=== PATIENT | female | born 1950 | race Two or more races ===

== ENCOUNTER → 2021-10-16 | Outpatient (CLI) | payer OTHER ==
[2021-10-16 08:46] LABS: Urine Bacteria NONE SEEN /hpf (None Seen); Urine Blood Negative /uL (Negative); Urine Mucus FEW (None Seen); Urine Specific Gravity 1.023 (1.001-1.035); Urine WBC 2 /hpf (0 - 5)
[2021-10-16 09:31] LABS: Potassium 4.4 mmol/L (3.5-5.1)
[2021-10-16 09:40] LABS: BUN/Creatinine Ratio 14.5; Calcium 8.6 mg/dL (8.5-10.1)
== END | disposition home or self-care (01) ==
LOC: LAB 08:03
PROVIDERS: ATTEND Student in an Organized Health Care Education/Training Program
DX: E78.5 Hyperlipidemia, unspecified (principal); E09.8 Drug or chemical induced diabetes mellitus with unspecified complications
CPT/HCPCS: 36415; 80048; 80061; 81001; 84439; 84443

== ENCOUNTER → 2022-08-15 | Outpatient (CLI) | payer OTHER ==
[2022-08-15 09:23] LABS: Basophils # (auto) 0 10 ^3/uL (0-0.2); Basophils % (auto) 0.7 % (0.0-2.0); Eosinophils # (auto) 0.1 10 ^3/uL (0-0.8); Eosinophils % (auto) 1.2 % (0.0-7.0); Hematocrit 37.7 % (36.0-46.0); Hemoglobin 12.5 g/dL (12.2-16.2); Lymphocytes # (auto) 1.7 10 ^3/uL (0.4-5.4); Lymphocytes % (auto) 28.5 % (10.0-50.0); Mean Corpuscular Hgb Conc. 33.2 g/dL (32.0-36.0); Mean Corpuscular Volume 90.3 fL (80.0-100.0); Monocytes # (auto) 0.5 10 ^3/uL (0-1.3); Monocytes % (auto) 7.8 % (0.0-12.0); Neutrophils # (auto) 3.6 10 ^3/uL (1.6-8.6); Neutrophils % (auto) 61.8 % (37.0-80.0); Nucleated Red Blood Cells % 0.1 %; Red Blood Cells 4.17 10^6/uL (4.0-5.20); Red Cell Distribution Width 13.6 % (11.8-14.3); White Blood Cell 5.8 10^3/uL (4.4-10.8)
[2022-08-15 09:46] LABS: Urine Bacteria NONE SEEN /hpf (None Seen); Urine Blood Negative /uL (Negative); Urine Mucus FEW (None Seen); Urine Specific Gravity 1.015 (1.001-1.035); Urine WBC 4 /hpf (0 - 5)
[2022-08-15 10:02] LABS: BUN/Creatinine Ratio 13.4 (10.0-20.0); Calcium 8.9 mg/dL (8.5-10.1); Potassium 4.3 mmol/L (3.5-5.1)
== END | disposition home or self-care (01) ==
LOC: LAB 08:54
PROVIDERS: ATTEND Student in an Organized Health Care Education/Training Program
DX: E55.9 Vitamin D deficiency, unspecified (principal); E03.8 Other specified hypothyroidism; R03.0 Elevated blood-pressure reading, without diagnosis of hypertension
CPT/HCPCS: 36415; 80048; 81001; 82306; 84439; 84443; 85025

== ENCOUNTER → 2023-02-14 | Outpatient (CLI) | payer OTHER ==
[2023-02-14 07:43] LABS: Urine WBC None Seen /hpf (0 - 5)
[2023-02-14 08:01] LABS: Basophils # (auto) 0 10 ^3/uL (0-0.2); Basophils % (auto) 0.5 % (0.0-2.0); Eosinophils # (auto) 0.1 10 ^3/uL (0-0.8); Eosinophils % (auto) 1.7 % (0.0-7.0); Hematocrit 39.6 % (36.0-46.0); Hemoglobin 13.4 g/dL (12.2-16.2); Lymphocytes # (auto) 1.5 10 ^3/uL (0.4-5.4); Mean Corpuscular Hemoglobin 30.9 pg (28.0-32.0); Mean Corpuscular Hgb Conc. 33.8 g/dL (32.0-36.0); Mean Corpuscular Volume 91.2 fL (80.0-100.0); Monocytes # (auto) 0.4 10 ^3/uL (0-1.3); Monocytes % (auto) 7.9 % (0.0-12.0); Neutrophils # (auto) 2.8 10 ^3/uL (1.6-8.6); Neutrophils % (auto) 58.9 % (37.0-80.0); Nucleated Red Blood Cells % 0.2 %; Red Blood Cells 4.34 10^6/uL (4.0-5.20); Red Cell Distribution Width 14.3 % (11.8-14.3); White Blood Cell 4.7 10^3/uL (4.4-10.8)
[2023-02-14 08:10] LABS: Urine Bacteria NONE SEEN /hpf (None Seen); Urine Blood Negative /uL (Negative); Urine Clarity Clear (Clear); Urine Protein, UAD Negative (Negative); Urine Specific Gravity 1.012 (1.001-1.035); Urine Urobilinogen Normal (Negative); Urine pH 7.5 (5.0-8.0)
[2023-02-14 08:19] LABS: Urine Color Straw (Yellow)
[2023-02-14 08:32] LABS: Alanine Aminotransferase 23 U/L (7-40); Albumin 4.5 g/dL (3.2-4.8); Alkaline Phosphatase 85 U/L (46-116); Anion Gap 7 (5-15); Aspartate Aminotransferase 22 U/L (13-40); BUN/Creatinine Ratio 12.8 (10.0-20.0); Blood Urea Nitrogen 12 mg/dL (9-23); Calcium 9.3 mg/dL (8.5-10.1); Carbon Dioxide 28 mmol/L (20-30); Chloride 107 mmol/L (98-107); Cholesterol 147 mg/dL (< 200); Glucose 90 mg/dL (74-106); HDL Cholesterol 55 mg/dL (40-59); LDL Cholesterol 77 mg/dL (< 100); Potassium 4.3 mmol/L (3.5-5.1); Sodium 142 mmol/L (136-145); Triglycerides 134 mg/dL (< 150)
[2023-02-14 08:33] LABS: Bilirubin, Total 1.1 mg/dL (0.2-1.0); Total Protein 7.3 g/dL (5.7-8.2)
== END | disposition home or self-care (01) ==
LOC: LAB 07:31
PROVIDERS: ATTEND Student in an Organized Health Care Education/Training Program
DX: E03.8 Other specified hypothyroidism (principal); E78.5 Hyperlipidemia, unspecified; R03.0 Elevated blood-pressure reading, without diagnosis of hypertension
CPT/HCPCS: 36415; 80053; 80061; 81001; 84439; 84443; 85025

== ENCOUNTER → 2023-06-24 | Outpatient (CLI) | payer OTHER ==
[2023-06-24 08:11] LABS: Basophils # (auto) 0 10 ^3/uL (0-0.2); Basophils % (auto) 0.5 % (0.0-2.0); Eosinophils # (auto) 0.1 10 ^3/uL (0-0.8); Eosinophils % (auto) 2.1 % (0.0-7.0); Hematocrit 38.6 % (36.0-46.0); Hemoglobin 12.8 g/dL (12.2-16.2); Lymphocytes % (auto) 41.8 % (10.0-50.0); Mean Corpuscular Hemoglobin 30.1 pg (28.0-32.0); Mean Corpuscular Hgb Conc. 33.1 g/dL (32.0-36.0); Monocytes # (auto) 0.4 10 ^3/uL (0-1.3); Monocytes % (auto) 7.5 % (0.0-12.0); Neutrophils # (auto) 2.3 10 ^3/uL (1.6-8.6); Neutrophils % (auto) 48.1 % (37.0-80.0); Nucleated Red Blood Cells % 0.1 %; Red Blood Cells 4.24 10^6/uL (4.0-5.20); Red Cell Distribution Width 13.5 % (11.8-14.3); White Blood Cell 4.8 10^3/uL (4.4-10.8)
[2023-06-24 08:22] LABS: Urine Bacteria FEW /hpf (None Seen); Urine Blood Negative /uL (Negative); Urine Clarity Clear (Clear); Urine Color Yellow (Yellow); Urine Protein, UAD Negative (Negative); Urine Specific Gravity 1.015 (1.001-1.035); Urine Urobilinogen Normal (Negative); Urine WBC 2 /hpf (0 - 5); Urine pH 6.5 (5.0-8.0)
[2023-06-24 09:03] LABS: Alanine Aminotransferase 27 U/L (7-40); Albumin 4.2 g/dL (3.2-4.8); Alkaline Phosphatase 89 U/L (46-116); Anion Gap 6 (5-15); Aspartate Aminotransferase 21 U/L (13-40); BUN/Creatinine Ratio 11.2 (10.0-20.0); Bilirubin, Total 0.8 mg/dL (0.2-1.0); Blood Urea Nitrogen 10 mg/dL (9-23); Calcium 9.3 mg/dL (8.5-10.1); Carbon Dioxide 28 mmol/L (20-30); Chloride 108 mmol/L (98-107); Cholesterol 170 mg/dL (< 200); Glucose 94 mg/dL (74-106); HDL Cholesterol 55 mg/dL (40-59); LDL Cholesterol 101 mg/dL (< 100); Potassium 4.2 mmol/L (3.5-5.1); Sodium 142 mmol/L (136-145); Total Protein 6.7 g/dL (5.7-8.2); Triglycerides 159 mg/dL (< 150)
== END | disposition home or self-care (01) ==
LOC: LAB 07:56
PROVIDERS: ATTEND Student in an Organized Health Care Education/Training Program
DX: Z12.11 Encounter for screening for malignant neoplasm of colon (principal); R73.9 Hyperglycemia, unspecified; R03.0 Elevated blood-pressure reading, without diagnosis of hypertension; E03.8 Other specified hypothyroidism
CPT/HCPCS: 36415; 80053; 80061; 81001; 82270; 83036; 84439; 84443; 85025

== ENCOUNTER → 2024-01-28 | Outpatient (CLI) | payer OTHER ==
[2024-01-28 08:34] LABS: Urine Bacteria None Seen /hpf (None Seen)
[2024-01-28 08:54] LABS: Basophils # (auto) 0 10 ^3/uL (0-0.2); Basophils % (auto) 0.9 % (0.0-2.0); Eosinophils # (auto) 0.1 10 ^3/uL (0-0.8); Eosinophils % (auto) 1.4 % (0.0-7.0); Hematocrit 40.5 % (36.0-46.0); Hemoglobin 13.7 g/dL (12.2-16.2); Lymphocytes # (auto) 1.9 10 ^3/uL (0.4-5.4); Lymphocytes % (auto) 43.1 % (10.0-50.0); Mean Corpuscular Hemoglobin 31.3 pg (28.0-32.0); Mean Corpuscular Hgb Conc. 33.8 g/dL (32.0-36.0); Mean Corpuscular Volume 92.8 fL (80.0-100.0); Monocytes # (auto) 0.4 10 ^3/uL (0-1.3); Monocytes % (auto) 9.6 % (0.0-12.0); Nucleated Red Blood Cells % 0.1 %; Platelet Count (auto) 256 10^3/uL (140-450); Red Blood Cells 4.36 10^6/uL (4.0-5.20); Red Cell Distribution Width 13.7 % (11.8-14.3); White Blood Cell 4.4 10^3/uL (4.4-10.8)
[2024-01-28 09:16] LABS: Urine Blood Negative /uL (Negative); Urine Clarity Turbid (Clear); Urine Color Yellow (Yellow); Urine Mucus FEW (None Seen); Urine Protein, UAD Negative (Negative); Urine Specific Gravity 1.017 (1.001-1.035); Urine Urobilinogen Normal (Negative); Urine WBC 5 /hpf (0 - 5)
[2024-01-28 09:24] LABS: Alanine Aminotransferase 16 U/L (7-40); Albumin 4.1 g/dL (3.2-4.8); Alkaline Phosphatase 85 U/L (46-116); Anion Gap 5 (5-15); Aspartate Aminotransferase 15 U/L (13-40); BUN/Creatinine Ratio 14.1 (10.0-20.0); Bilirubin, Total 0.6 mg/dL (0.2-1.0); Blood Urea Nitrogen 13 mg/dL (9-23); Calcium 9.5 mg/dL (8.7-10.4); Carbon Dioxide 27 mmol/L (20-31); Chloride 109 mmol/L (98-107); Glucose 100 mg/dL (74-106); Sodium 141 mmol/L (136-145)
== END | disposition home or self-care (01) ==
LOC: LAB 08:15
PROVIDERS: ATTEND Student in an Organized Health Care Education/Training Program
DX: E03.8 Other specified hypothyroidism (principal); R03.0 Elevated blood-pressure reading, without diagnosis of hypertension
CPT/HCPCS: 36415; 80053; 81001; 84439; 84443; 85025

== ENCOUNTER 2024-03-30 18:41 | Inpatient (IN) | payer OTHER ==
[~2024-03-30] VITALS: Ht 160 cm; Wt 80.0 kg
[~2024-03-30 18:41] MED LIST: ROSU5TAB5 PO
[2024-03-30 20:40] VITALS: BP 138/63; PULSE 66; RESP 18; TEMP 97.8; O2SAT 95
[2024-03-30 21:10] VITALS: BP 138/63; PULSE 66; RESP 18; TEMP 97.8; O2SAT 95
[2024-03-30 23:02] LABS: Basophils # (auto) 0 10 ^3/uL (0-0.2); Basophils % (auto) 0.3 % (0.0-2.0); Eosinophils # (auto) 0.1 10 ^3/uL (0-0.8); Eosinophils % (auto) 0.9 % (0.0-7.0); Hemoglobin 13.1 g/dL (12.2-16.2); Lymphocytes # (auto) 1.7 10 ^3/uL (0.4-5.4); Lymphocytes % (auto) 26.2 % (10.0-50.0); Mean Corpuscular Hemoglobin 30.4 pg (28.0-32.0); Mean Corpuscular Hgb Conc. 32.9 g/dL (32.0-36.0); Mean Corpuscular Volume 92.5 fL (80.0-100.0); Monocytes # (auto) 0.4 10 ^3/uL (0-1.3); Monocytes % (auto) 6.5 % (0.0-12.0); Neutrophils # (auto) 4.3 10 ^3/uL (1.6-8.6); Neutrophils % (auto) 66.1 % (37.0-80.0); Nucleated Red Blood Cells % 0.1 %; Platelet Count (auto) 261 10^3/uL (140-450); Red Blood Cells 4.32 10^6/uL (4.0-5.20); Red Cell Distribution Width 13.9 % (11.8-14.3); White Blood Cell 6.5 10^3/uL (4.4-10.8)
--- NOTE | 2024-03-30 23:08 | DVHHPRES ---
History of Present Illness Resident Creating Document: AVNIPEYTONSANTOSH RESIDENT History of Present Illness Patient was a 73-year-old female with no significant past medical history who was transferred from [facility] where she went for chief complaint of chest pain for few hours prior to admission yesterday. Patient reported that about 10:00 a.m. in the morning yesterday she started having sudden onset pressure-like right lower chest pain which radiated to the back ,right upper quadrant and epigastrium, occurred while she was walking in the house, 8/10 on intensity, the pain relieved on sitting up and exacerbated on lying down, no association with deep breaths. Denied recent flu-like symptoms of cough, congestion, coryza, body aches. Denied similar episode before. Patient does not report history of indigestion, GERD, taking Nsaids, drinking excess caffiene or eating spicy foods. Patient was admitted to [facility] where she underwent: CT chest abdomen with contrast which showed dominant 2 cm calcified gallstone no cholecystitis, no acute findings chest abdominal pelvis, 2.1 cm somewhat intermediate right adrenal nodule Ultrasound abdomen showed cholelithiasis with borderline gallbladder wall thickening Patient had elevated troponin 80->170 12 lead EKG showed no ST segment changes, nonspecific T-wave abnormality. Past Medical History None Past Surgical History Right breast cyst removal hysterectomy in 1982 Past Social History Lives with her and denies smoking, alcohol, drug use Review of Systems Review of Systems Patient seen and examined at the bedside Patient reports epigastric abdominal pain 4/10 in intensity, non radiating, no exacerbating/relieving factors Denied nausea, vomiting, diarrhea, chest pain, shortness of breath, indigestion, bloating Patient had sandwich at 4:00 p.m. today after which the pain was a little bit improved. Allergies: Coded Allergies: NO KNOWN ALLERGIES (Unverified , 03/30/24) Exam Vital Signs Vital Signs Date Time Temp Pulse Resp B/P (MAP) Pulse Ox O2 Delivery O2 Flow Rate FiO2 03/30/24 21:10 97.8 66 18 138/63 (88) 95 97.8 Exam Physical Examination Constitutional: Patient is alert and oriented to time, place and person, appears to be in no acute distress and lying comfortably in bed. Gen - no pallor, no icterus, no cyanosis, no clubbing, no LAD, no edema . Skin - Patients skin is warm and dry. HEENT - normocephalic, atraumatic, moist mucous membranes. Neck - full ROM, no LAD, no JVD Pulmonary - B/L vesicular breath sounds. no crackles , no wheezing, no stridor. cardiovascular - normal S1,S2 heard. no murmurs heard. peripheral pulses radial 2+, pedal 2+. capillary refill normal <2 secs. GI - soft abdomen. Tenderness to palpation in the right upper quadrant with a positive Rojas's sign. no hepatospleenomegaly. Bowel sounds normoactive Extremities: Bilateral upper extremity strength 5/5, bilateral lower extremity strength 5/5 Neurology: Visual field WNL, extraocular movements nonpainful and WNL, normal facial sensation and jaw strength, no facial droop, normal speech, no tremor, no sensory deficiets. Assessment/Plan Assessment/Plan Assessment # acute chest pain, likely atypical, rule out ACS # NSTEMI, likely type II # acute abdominal pain # ?acute cholecystitis # ?acute pancreatitis # dyspepsia # hyperlipidemia with elevated triglycerides, total cholesterol, LDL Plan - From records at [facility] CT chest abdomen with contrast which showed dominant 2 cm calcified gallstone no cholecystitis, no acute findings chest abdominal pelvis, 2.1 cm somewhat intermediate right adrenal nodule - Ultrasound abdomen showed cholelithiasis with borderline gallbladder wall thickening - troponin trended 80-->170 - MRCP pending - lipase 37 - NPO - Surgery consult pending - troponin trending down to 50 - EKG shows sinus rhythm with no evidence of ST/T wave abnormalities - protonix 40 mg IV qd - ceftriaxone 1 g IV and metronidazole 500 g q.8 hours IV - IV fluids low rate @ 75ml/hr - atorvastatin 40 mg hs Prophylaxis: Enoxaparin 40 mg SC q.day Goals of care discussed with the patient and the daughter for over 25 minutes. Full code Plan discussed with Dr. Harmon Plan discussed with: Patient, Daughter My Orders Orders - SANTOSH DUNBAR RESIDENT Procedure Category Date Status Time Admit ADMIT 03/30/24 Transmitted 22:10 Stat Ekg For Chest LEO 03/30/24 In Process Pain 22:10 Emergency Dysrhythmia LEO 03/30/24 In Process Protocol 22:10 Complete Blood Count LAB 03/30/24 Logged 22:12 Comprehensive LAB 12/23/24 Logged Metabolic Panel 22:12 Urinalysis LAB 03/30/24 Logged 22:12 Drug Screen LAB 03/30/24 Logged 22:12 Chest Xray 1 View XY 03/30/24 Logged 22:12 Covid19 Antigen Briseyda LAB 03/30/24 Logged Rapid Influenza A&B LAB 03/30/24 Logged 22:12 Hemoglobin A1c LAB 03/30/24 Logged 22:12 Lipid Panel LAB 03/30/24 Logged 22:12 Lipase LAB 03/30/24 Logged 22:12 Mrcp Mri MRI 03/30/24 Logged 22:12 PTPTT LAB 03/30/24 Logged 22:12 Npo (Nothing By DIET 03/31/24 Transmitted Mouth) Diet Breakfast * Surgical Consult CONS 03/30/24 Transmitted Code Status CODE 03/30/24 Transmitted 22:27 Date of Service: Mar 30, 2024 Billing Provider: TALIB HARMON MD Common Visit Codes: [id number] INP/OBS CARE (HIGH) Secondary Visit Codes: [id number] CARE PLAN 30 MINUTES SANTOSH DUNBAR RESIDENT Mar 30, 2024 23:08 TALIB HARMON MD Mar 31, 2024 17:22
[2024-03-30 23:17] LABS: COVID19 ANTIGEN SOFIA FIA NEGATIVE (NEGATIVE); Rapid Influenza A Negative (Negative); Rapid Influenza B Negative (Negative)
[2024-03-30 23:17] LABS: INR 1.02 (0.9-1.15); Partial Thromboplastin Time 25.7 SEC (24.5-34.5); Prothrombin Time 10.8 sec (9.3-11.8)
[2024-03-30 23:23] LABS: Alanine Aminotransferase 18 U/L (7-40); Alkaline Phosphatase 88 U/L (46-116); Anion Gap 6 (5-15); Aspartate Aminotransferase 18 U/L (13-40); BUN/Creatinine Ratio 11.1 (10.0-20.0); Bilirubin, Total 0.6 mg/dL (0.2-1.0); Blood Urea Nitrogen 10 mg/dL (9-23); Calcium 9.5 mg/dL (8.7-10.4); Carbon Dioxide 25 mmol/L (20-31); Glucose 90 mg/dL (74-106); HDL Cholesterol 49 mg/dL (40-59); Sodium 143 mmol/L (136-145); Total Protein 6.7 g/dL (5.7-8.2)
[2024-03-30 23:29] LABS: Chloride 112 mmol/L (98-107); Cholesterol 258 mg/dL (< 200); LDL Cholesterol 174 mg/dL (< 100); Triglycerides 220 mg/dL (< 150)
[2024-03-30 23:41] LABS: Lipase 37 U/L (12-53)
[2024-03-31] VITALS (8 sets, daily range): BP systolic 127–160; BP diastolic 59–71; PULSE 62–69; RESP 16–18; TEMP 97.8–98.8; O2SAT 92–98
[2024-03-31] MEDS: cefTRIAXone 1GM/50ML D5W 50 ML IV ONE (00:30)
[2024-03-31] MEDS: PANTOPRAZOLE 40 MG/10 ML VIAL INJ IV ONE (00:30)
[2024-03-31] MEDS: SODIUM CHLORIDE 0.9% 1,000 ML IV ONE ×2 (01:30→17:14)
[2024-03-31] MEDS: metroNIDAZOLE 500MG/100ML 100 ML IV ONE (01:38)
[2024-03-31 04:52] LABS: Amphetamine Screen, Urine Neg (NEGATIVE); Barbiturate Scree,Urine Neg (NEGATIVE); Benzodiazephine Screen, Urine Neg (NEGATIVE); Cannabinoid Screen, Urine Neg (NEGATIVE); Cocaine Screen, Urine Neg (NEGATIVE); Opiate Scree,Urine Neg (NEGATIVE); Phencyclidine Screen, Urine Neg (NEGATIVE)
[2024-03-31 04:55] LABS: Urine Bacteria FEW /hpf (None Seen); Urine Blood Negative /uL (Negative); Urine Clarity Turbid (Clear); Urine Color Yellow (Yellow); Urine Mucus FEW (None Seen); Urine Protein, UAD TRACE (Negative); Urine Specific Gravity 1.027 (1.001-1.035); Urine Squamous Epithelial Cell FEW /hpf (<5); Urine Urobilinogen Normal (Negative); Urine WBC 101 /hpf (0 - 5); Urine pH 5.5 (5.0-9.0)
[2024-03-31] MEDS: metroNIDAZOLE 500MG/100ML 100 ML IV SCH (05:40)
--- NOTE | 2024-03-31 07:57 | DVH ---
CHEST RADIOGRAPH Indication: h/o SOB Technique: Single frontal view of the chest was obtained Comparison: None FINDINGS: Lines and Tubes: None Lungs: No focal consolidation. Pleura: No effusion. No pneumothorax. Cardiomediastinal contours: Unremarkable Bones: No acute osseous abnormality. IMPRESSION: 1. No acute cardiopulmonary disease.
--- NOTE | 2024-03-31 09:19 | DVH ---
MRI Abdomen, MRCP without IV Contrast Exam Date: 03/31/2024 08:25 AM Comparison: None History: RUQ pain, acute cholecystitis Technique: Multisequence multiplanar MRI images were obtained of the abomen. MRCP including 3D SPACE, Radial 2D slabs and SPACE 3D MIP images Initial imaging is obtained without intravenous contrast. Findings: Liver: The liver is normal in size without focal lesions. Normal liver contour. Spleen: Unremarkable. Pancreas: The pancreas is normal in appearance without focal lesions. Gallbladder and ducts: Cholelithiasis noted without secondary findings of cholecystitis or biliary ob struction. The cystic duct, right and left hepatic ducts, common hepatic duct, and common bile duct s are unremarkable. The pancreatic duct is within normal limits. Adrenal glands: Left adrenal gland is unremarkable. Indeterminate right adrenal gland measures 1.3 c m. Kidneys: Normal enhancement without suspicious lesions or hydronephrosis. Visualized bowel: Grossly unremarkable. Vasculature: Unremarkable. Lymphadenopathy: No evidence for lymphadenopathy. Ascites: Absent. Musculoskeletal: Bone marrow signal is normal. IMPRESSION: Cholelithiasis noted without secondary findings of cholecystitis or biliary obstruction. Indeterminate right adrenal gland measures 1.3 cm. This can be further evaluated with nonemergent CT or MRI adrenal mass protocol if clinically indicated.
[2024-03-31] MEDS: PANTOPRAZOLE 40 MG/10 ML VIAL INJ IV SCH (09:31)
[2024-03-31] MEDS: ENOXAPARIN SOD 40 MG/0.4 ML SYRINGE SC SCH (11:15)
--- NOTE | 2024-03-31 13:16 | DVHSR ---
APPROVED REPORT EXAM: Two-dimensional and M-mode echocardiogram with Doppler and color Doppler. Blood Pressure: 141/61 mmHg INDICATION NSTEMI RISK FACTORS Height: , Weight: DIMENSIONS LVDd4.0 (3.8-5.7cm)LA (2D)3.9 (1.9-4.0cm)Aortic Root3.3 (2.0-3.7cm) LVDs2.4 (2.5-4.0cm)LA (MM) (1.9-4.0cm)Aortic Cusp Exc1.8 (1.5-2.0cm) EF (%) 63.0 (55-70%)Rt. Atrium4.1 (1.9-4.0cm)Asc. Aorta cm IVSd0.8 (0.7-1.1cm)RV (D)3.9 (1.8-2.4cm) PWd1.0 (0.7-1.1cm) Mitral Valve MitralMitral Stenosis E wave0.77m/sMV Mean GR.mmHg A wave1.13m/sMV Peak GR.mmHg E/A ratio0.72D MVAcm2 DECEL [id number] 1/2 Timems Aortic Valve Aortic ValveAortic Stenosis V10.99m/Jessica Mean GR.2mmHg V21.10m/Jessica Peak GR.5mmHg LVOT Diameter1.8 (1.8-2.4cm)Doppler AVA2.29cm2 Pulmonic Valve V20.78m/s Tricuspid Valve TR Velocity2.74m/s [id number] Other Information Technically limited study due to body habitus. Conclusion Normal left ventricular size and dimension. Normal left ventricular systolic function estimated ejec tion fraction 55%. There is a grade 1 diastolic dysfunction. Normal right ventricular size and dimension. Normal right ventricular systolic function. Normal biatrial size and dimension. Normal aortic valve structure and function. Normal mitral valve structure and function. Normal tricuspid valve structure and function. The pulmonary valve is grossly normal. No pericardial effusion.
--- NOTE | 2024-03-31 14:53 | DVHINCON2 ---
Date Seen: Mar 31, 2024 Referring Physician MD Arthur Reason for Consultation NSTEMI History of Present Illness This is a pleasant [place]an-speaking mostly 73-year-old female who was transferred to our facility from [facility] in the setting of chest pain. The patient reports she presented to the aforementioned facility with complaints of noncardiac chest pain associated with mild shortness of breath, r ight upper quadrant pain, and epigastric pain which worsened with food intake. At that time, she underwent a CT angio chest/abd with contrast without acute findings. A chest x-ray with no acute cardiopulmonary abnormalities. An US abdomen revealing a mildly distended gallbladder with negative sonographic Rojas's sign. Found with a high sensitivity troponin level peaking at 170 ng/L and a 12 lead electrocardiogram revealing a sinus rhythm without discernible ST segment changes. At time of assessment, the patient denied any further chest pain or shortness of breath. Troponin levels trending down at 50 ng/L. Denies any prior medical history stating she underwent blood work with her PCP this past February and without abnormal findings. Denies a family history for cardiovascular disease. Past Medical History Past medical history reviewed. No other significant than mentioned above. Past Surgical History Past surgical history reviewed. No other significant than mentioned above. Family History: Hypertension Family History Family history reviewed. Not significant for CV disease. Social History Denies the use of illicit drugs, alcohol, or tobacco use. Allergies: Coded Allergies: NO KNOWN ALLERGIES (Unverified , 03/30/24) Home Meds Denies any home medications. Current Medications Current Medications Medications (Trade) Dose Ordered Sig/Tayler Route PRN Reason Start Time Stop Time Status Last Admin Pantoprazole Sodium (Protonix) 40 mg DAILY IV 03/31/24 10:00 03/31/24 09:31 Ceftriaxone Sodium 50 ml @ 100 mls/hr DAILY@2100 IV 03/31/24 21:00 Metronidazole 100 ml @ 100 mls/hr Q8HR IV 03/31/24 06:00 03/31/24 13:38 Enoxaparin Sodium (Lovenox) 40 mg DAILY SC 03/31/24 10:00 03/31/24 11:15 Atorvastatin Calcium (Lipitor) 40 mg HS PO 03/31/24 22:00 Review of Systems Constitutional: No symptom reported Ears, Nose, & Throat: No symptom reported Eyes: No symptom reported Neurological: No symptoms reported Pulmonary/Respiratory: SOB Cardiovascular: Chest pain Gastrointestinal: No symptom reported Genitourinary: RUQ/epigastric pain Musculoskeletal: No symptom reported Skin: No symptom reported Psychiatric: No symptom reported Endocrine: No symptom reported Hemotologic/Lymphatic: No symptom reported Vital Signs Vital Signs Date Time Temp Pulse Resp B/P (MAP) Pulse Ox O2 Delivery O2 Flow Rate FiO2 03/31/24 12:45 98.3 62 18 147/59 (88) 98 98.3 03/31/24 08:00 Room Air* 0 21 Physical Exam General Appearance: Cooperative. Well developed. Obese. In no acute distress Head Exam: Normal inspection Neck Exam: Normal inspection. Non-tender. Normal alignment Pulmonary/Respiratory: Chest non-tender. Clear bilateral breath sounds Cardiovascular/Chest: Regular rate and rhythm. S1, S2. NSR. No murmurs. No JVD. Peripheral Pulses: 2+ Radial (R). 2+ Radial (L). 2+ Pedal (R). 2+ Pedal (L) Abdominal Exam: Normal bowel sounds. Soft. Nontender. No hepatospenomegaly. No masses Ankle Exam: Negative ankle edema Lower extremities: Negative lower extremity edema Neuro/Mental Status: A&O x4. Coherent Thoughts/Psych: Normal thought pattern. Appropriate mood and affect. Good judgement and insight Appearance: In no acute distress Skin Exam: Normal inspection. Normal color. Warm. Dry Labs/Diagnostic Data Labs Test 03/31/24 04:20 03/31/24 01:07 03/30/24 22:44 03/30/24 22:40 Range/Units Urine Color Yellow Yellow Urine Clarity Turbid H Clear Urine pH 5.5 5.0-9.0 Urine Specific [place] 1.027 1.001-1.035 Urine Protein Trace H Negative Urine Ketones Negative Negative Urine Blood Negative Negative /uL Urine Nitrite Negative Negative Urine Bilirubin Negative Negative Urine Urobilinogen Normal Negative mg/dL Urine Leukocyte Esterase 3+ Negative /uL Urine RBC 7 0 - 4 /hpf Urine WBC 101 0 - 5 /hpf Urine Squamous Epithelial Cells Few <5 /hpf Urine Bacteria Few H None Seen /hpf Urine Mucus Few None Seen Urine Glucose Normal Normal mg/dL Urine Opiates Screen Neg NEGATIVE Urine Fentanyl Screen Neg NEGATIVE Urine Barbiturates Screen Neg NEGATIVE Urine Phencyclidine Screen Neg NEGATIVE Urine Amphetamines Screen Neg NEGATIVE Urine Benzodiazepines Screen Neg NEGATIVE Urine Cocaine Screen Neg NEGATIVE Urine Cannabinoids Screen Neg NEGATIVE Troponin I High Sensitivity 50 *H </=34 ng/L White Blood Count 6.5 4.4-10.8 10^3/uL Red Blood Count 4.32 4.0-5.20 10^6/uL Hemoglobin 13.1 12.2-16.2 g/dL Hematocrit 40.0 36.0-46.0 % Mean Corpuscular Volume 92.5 80.0-100.0 fL Mean Corpuscular Hemoglobin 30.4 28.0-32.0 pg Mean Corpuscular Hemoglobin Concent 32.9 32.0-36.0 g/dL Red Cell Distribution Width 13.9 11.8-14.3 % Platelet Count 261 140-450 10^3/uL Mean Platelet Volume 8.0 6.9-10.8 fL Neutrophils (%) (Auto) 66.1 37.0-80.0 % Lymphocytes (%) (Auto) 26.2 10.0-50.0 % Monocytes (%) (Auto) 6.5 0.0-12.0 % Eosinophils (%) (Auto) 0.9 0.0-7.0 % Basophils (%) (Auto) 0.3 0.0-2.0 % Neutrophils # (Auto) 4.3 1.6-8.6 10 ^3/uL Lymphocytes # (Auto) 1.7 0.4-5.4 10 ^3/uL Monocytes # (Auto) 0.4 0-1.3 10 ^3/uL Eosinophils # (Auto) 0.1 0-0.8 10 ^3/uL Basophils # (Auto) 0 0-0.2 10 ^3/uL Nucleated Red Blood Cells 0.1 % Prothrombin Time 10.8 9.3-11.8 sec Prothrombin Time INR 1.02 0.9-1.15 Activated Partial Thromboplast Time 25.7 24.5-34.5 SEC Sodium Level 143 136-145 mmol/L Potassium Level 4.0 3.5-5.1 mmol/L Chloride Level 112 H 98-107 mmol/L Carbon Dioxide Level 25 20-31 mmol/L Anion Gap 6 5-15 Blood Urea Nitrogen 10 9-23 mg/dL Creatinine 0.90 0.550-1.02 mg/dL Glomerular Filtration Rate Calc 67 >90 mL/min BUN/Creatinine Ratio 11.1 10.0-20.0 Serum Glucose 90 74-106 mg/dL Hemoglobin A1c 5.7 <5.7 % A1C Calcium Level 9.5 8.7-10.4 mg/dL Total Bilirubin 0.6 0.2-1.0 mg/dL Aspartate Amino Transferase (AST) 18 13-40 U/L Alanine Aminotransferase (ALT) 18 7-40 U/L Alkaline Phosphatase 88 46-116 U/L Total Protein 6.7 5.7-8.2 g/dL Albumin 4.0 3.2-4.8 g/dL Triglycerides Level 220 H < 150 mg/dL Cholesterol Level 258 H < 200 mg/dL LDL Cholesterol 174 H < 100 mg/dL HDL Cholesterol 49 40-59 mg/dL Lipase 37 12-53 U/L Influenza Type A Antigen Negative Negative Influenza Type B Antigen Negative Negative SARS-CoV-2 Antigen (Rapid) Negative NEGATIVE Assessment Noncardiac chest pain Rule out acute cholecystitis /pancreatitis NSTEMI type 2 secondary to above Dyslipidemia Preprocedural cardiovascular examination Plan/Recommendation (Dr. Gallo) Echocardiogram reveals EF 55%. Revised cardiac risk index (Gerald criteria): Class I placing the patient at a 3.9% 30-day risk of , MD or cardiac arrest. Patient has no underlying history of congestive heart failure, coronary artery disease, and has an optimal functional capacity. Per Cardiology standpoint, the patient is at an acceptable-risk for moderate-risk surgical procedures. Continue lipid lowering agent. There is no additional cardiac workup indicated prior to surgery. Please call if you need to re-consult. Thank you for allowing us to care for this patient. This medical document was created using an electronic medical record system with voice recognition software and computerized dictation system. Although this document has been carefully reviewed, there might still be some phonetic and typographical errors. Occasional wrong-word or ``sound-alike substitutions may have occurred due to the inherent limitations of voice recognition software. These areas are purely typographical due to imperfections of the software programs and do not reflect any compromise in the patient's medical care. Please read the chart carefully and recognize, using context, where these substitutions have occurred. Plan discussed with: Patient, Spouse, Daughter, Other Date of Service: Mar 31, 2024 Billing Provider: ASHLEY GALLO MD Cardiology Common Codes: [id number] INP/OBS CARE (High) [facility] Mar 31, 2024 14:53
--- NOTE | 2024-03-31 16:41 | DVHPN2 ---
Subjective Seen and examined at bedside, family at bedside. c/o RUQ pain. MRCP reviewed. Surgical consult, may benefit from Cholecystectomy. Changes from previous H/P or p: No Changes Objective Vitals Vital Signs Date Time Temp Pulse Resp B/P (MAP) Pulse Ox O2 Delivery O2 Flow Rate FiO2 03/31/24 12:45 98.3 62 18 147/59 (88) 98 98.3 03/31/24 08:00 Room Air* 0 21 Intake/Output Intake and Output 03/31/24 06:59 Intake Total 250 ml Output Total 300 ml Balance -50 ml Intake Oral 0 ml IV Total 250 ml Output Urine Total 300 ml Exam Gen: in bed NAD Cvs: N S1/S2, RRR Resp: BLAE Abd: RUQ Pain Facer Operator: AAO x 4 Medications Current Medications Medications Dose Ordered Sig/Tayler Route Start Time Stop Time Status Last Admin Dose Admin Pantoprazole Sodium 40 mg DAILY IV 03/31/24 10:00 03/31/24 09:31 40 MG Ceftriaxone Sodium 50 ml @ 100 mls/hr DAILY@2100 IV 03/31/24 21:00 Metronidazole 100 ml @ 100 mls/hr Q8HR IV 03/31/24 06:00 03/31/24 13:38 100 MLS/HR Enoxaparin Sodium 40 mg DAILY SC 03/31/24 10:00 03/31/24 11:15 40 MG Atorvastatin Calcium 40 mg HS PO 03/31/24 22:00 Morphine Sulfate 2 mg Q4HPRN PRN IV 03/31/24 16:00 Ondansetron HCl 4 mg Q4HPRN PRN IV 03/31/24 16:15 Laboratory Results Laboratory Tests 03/30/24 22:44 Chemistry Test 03/30/24 22:44 Albumin 4.0 g/dL (3.2-4.8) Calcium Level 9.5 mg/dL (8.7-10.4) Total Protein 6.7 g/dL (5.7-8.2) Coagulation Test 03/30/24 22:44 Prothrombin Time 10.8 sec (9.3-11.8) Prothrombin Time INR 1.02 (0.9-1.15) Activated Partial Thromboplast Time 25.7 SEC (24.5-34.5) Lipid panel Test 03/30/24 22:44 Cholesterol Level 258 mg/dL (< 200) H HDL Cholesterol 49 mg/dL (40-59) Lipase 37 U/L (12-53) Triglycerides Level 220 mg/dL (< 150) H LFT Test 03/30/24 22:44 Alanine Aminotransferase (ALT) 18 U/L (7-40) Alkaline Phosphatase 88 U/L (46-116) Aspartate Amino Transferase (AST) 18 U/L (13-40) Total Bilirubin 0.6 mg/dL (0.2-1.0) HgA1c, TSH Test 03/30/24 22:44 Hemoglobin A1c 5.7 % A1C (<5.7) Urinalysis Test 03/31/24 04:20 Urine Color Yellow (Yellow) Urine Clarity Turbid (Clear) H Urine pH 5.5 (5.0-9.0) Urine Specific [place] 1.027 (1.001-1.035) Urine Protein Trace (Negative) H Urine Ketones Negative (Negative) Urine Blood Negative /uL (Negative) Urine Nitrite Negative (Negative) Urine Bilirubin Negative (Negative) Urine Urobilinogen Normal mg/dL (Negative) Urine Leukocyte Esterase 3+ /uL (Negative) Urine RBC 7 /hpf (0 - 4) Urine WBC 101 /hpf (0 - 5) Urine Squamous Epithelial Cells Few /hpf (<5) Urine Bacteria Few /hpf (None Seen) H Urine Mucus Few (None Seen) Urine Glucose Normal mg/dL (Normal) Assessment/Plan Assessment/Plan # Cholelithiasis - Surgical Cx - NPO after midnight # Tropinemia - No chest pain or EKG changes # Chronic Diastolic CHF # 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
[2024-03-31] MEDS: ONDANSETRON HCL 4 MG/2 ML VIAL IV PRN (17:01)
[2024-03-31] MEDS: MORPHINE SULFATE INJ 2 MG/ml SYRG IV PRN (17:05)
[2024-03-31 19:18] LABS: INR 1.06 (0.9-1.15); Partial Thromboplastin Time 29.5 SEC (24.5-34.5); Prothrombin Time 11.2 sec (9.3-11.8)
[2024-03-31] MEDS: cefTRIAXone 1GM/50ML D5W 50 ML IV SCH (20:42)
[2024-03-31] MEDS: ATORVASTATIN 20 MG TAB PO SCH (22:01)
[2024-04-01] VITALS (9 sets, daily range): BP systolic 114–148; BP diastolic 64–88; PULSE 65–88; RESP 11–20; TEMP 97.5–99; O2SAT 93–98
--- NOTE | 2024-04-01 09:52 | DVHINCON2 ---
SURGICAL CONSULTATION HISTORY OF PRESENT ILLNESS: The patient is evaluated in her bed, surrounded by family. She is a 73-year-old female, non-Divehi speaking, she is interviewed and examined with the use of [place]. The patient presented to [facility] with chest pain. The patient was found to have a noncardiac chest pain. She was then seen at this facility in the Emergency Room complaining of increasing right upper quadrant abdominal pain. She was found to have a distended gallbladder. The patient has had no prior operations other than C-sections in the remote past. The patient has no medical conditions. She takes no medications. SOCIAL HISTORY: She is a nonsmoker, nondrinker, uses no drugs. Has no history of drug use in the past. PAST SURGICAL HISTORY: The patient has had no concomitant findings. REVIEW OF SYSTEMS: A 12 systems reviewed and reveals no significant contributory information. PHYSICAL EXAMINATION: GENERAL: Well-developed, well-nourished female, no acute distress. HEENT: Pupils are equal, round, react to light equally. Sclerae are nonicteric. Extraocular motion is intact. Uvula midline. Trachea midline. NECK: Carotids are full without bruits. Jugular veins are collapsed. HEART: Regular rate and rhythm without murmur or gallop. ABDOMEN: Nontender, nondistended. No palpable masses or organomegalies. No CVA tenderness. EXTREMITIES: No peripheral vascular insufficiency. No venous stasis. LABORATORY DATA: The patient's laboratory evaluation, she has a normal white count, normal differential, normal platelet count. PT and INR are normal. Chemistry shows elevated triglycerides, elevated cholesterol and LDL cholesterol. The patient has normal electrolytes, normal bilirubin and liver enzymes. Elevated troponin 1. IMAGING: By means of MRCP demonstrated cholelithiasis without evidence of cholecystitis. Normal bile duct without evidence of bile duct obstruction. Chest x-ray shows no acute cardiopulmonary disease. IMPRESSION: Biliary colic gallstones, chronic cholecystitis. PLAN: Laparoscopic, possibly open cholecystectomy. Risks and potential complications explained to the patient in detail in the presence of her daughters. All questions answered. MD DELMY Apodaca/RUI TID: [id number] RECEIPT: [id number]
[2024-04-01] MEDS: LIDOCAINE W/ EPINEPHRINE 1% 20ML VIAL ONE (10:26)
[2024-04-01] MEDS: BUPIVACAINE HCL 50 ML ONE (10:26)
[2024-04-01] MEDS: ceFAZolin 1GM/50ML 100 ML IV ONE (10:38)
[2024-04-01] MEDS ORDERED: MIDAZOLAM HCL 2MG/2ML 2ml VIAL (1mg/ml) ONE (10:41)
[2024-04-01] MEDS ORDERED: HYDROmorphone HCL 2 MG/ML VL/or syr ONE (10:41)
[2024-04-01] MEDS ORDERED: METOCLOPRAMIDE HCL 5MG/ml INJ 2ml VIAL ONE (10:51)
[2024-04-01] MEDS ORDERED: KETOROLAC TROMETH 30 MG/ML 1ML VIAL ONE (10:51)
[2024-04-01] MEDS ORDERED: ONDANSETRON HCL 4 MG/2 ML VIAL ONE (10:51)
--- NOTE | 2024-04-01 10:51 | DVHPN2 ---
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 Medications Current Medications Medications Dose Ordered Sig/Tayler Route Start Time Stop Time Status Last Admin Dose Admin Pantoprazole Sodium 40 mg DAILY IV 03/31/24 10:00 03/31/24 09:31 40 MG Ceftriaxone Sodium 50 ml @ 100 mls/hr DAILY@2100 IV 03/31/24 21:00 03/31/24 20:42 100 MLS/HR Metronidazole 100 ml @ 100 mls/hr Q8HR IV 03/31/24 06:00 04/01/24 06:15 100 MLS/HR Enoxaparin Sodium 40 mg DAILY SC 03/31/24 10:00 03/31/24 11:15 40 MG Atorvastatin Calcium 40 mg HS PO 03/31/24 22:00 03/31/24 22:01 40 MG Morphine Sulfate 2 mg Q4HPRN PRN IV 03/31/24 16:00 03/31/24 17:05 2 MG Ondansetron HCl 4 mg Q4HPRN PRN IV 03/31/24 16:15 03/31/24 17:01 4 MG Laboratory Results Laboratory Tests 03/30/24 22:44 Coagulation Test 03/31/24 18:02 Prothrombin Time 11.2 sec (9.3-11.8) Prothrombin Time INR 1.06 (0.9-1.15) Activated Partial Thromboplast Time 29.5 SEC (24.5-34.5) Urinalysis Test 03/31/24 04:20 Urine Color Yellow (Yellow) Urine Clarity Turbid (Clear) H Urine pH 5.5 (5.0-9.0) Urine Specific [place] 1.027 (1.001-1.035) Urine Protein Trace (Negative) H Urine Ketones Negative (Negative) Urine Blood Negative /uL (Negative) Urine Nitrite Negative (Negative) Urine Bilirubin Negative (Negative) Urine Urobilinogen Normal mg/dL (Negative) Urine Leukocyte Esterase 3+ /uL (Negative) Urine RBC 7 /hpf (0 - 4) Urine WBC 101 /hpf (0 - 5) Urine Squamous Epithelial Cells Few /hpf (<5) Urine Bacteria Few /hpf (None Seen) H Urine Mucus Few (None Seen) Urine Glucose Normal mg/dL (Normal) Assessment/Plan Assessment/Plan # Cholelithiasis - Surgical Cx for Cholecystectomy # Tropinemia - No chest pain or EKG changes # Chronic Diastolic CHF # 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 # Goals of care discussion FULL CODE Plan discussed with: Other My Orders Orders - TALIB HARMON MD Procedure Category Date Status Time Morphine Sulfate PHA 03/31/24 In Process Injection 16:00 Communication Order ORDERS 03/31/24 Transmitted 15:51 Ondansetron Hcl PHA 03/31/24 In Process (Zofran) 16:15 Npo After Midnight DIET 03/31/24 Transmitted Dinner Complete Blood Count LAB 04/02/24 Verified 04:00 Comprehensive LAB 04/02/24 Verified Metabolic Panel 04:00 Date of Service: Apr 01, 2024 Billing Provider: TALIB HARMON MD Common Visit Codes: [id number] INP/OBS CARE(LOW) TALIB HARMON MD Apr 01, 2024 10:51
[2024-04-01] MEDS ORDERED: ePHEDrine SULFATE 50 MG/ML AMP ONE (10:58)
[2024-04-01] MEDS ORDERED: SUGAMMADEX 200mg/2ml Vial (100MG/ML) IV ONE (11:11)
[2024-04-01] MEDS ORDERED: ONDANSETRON HCL 4 MG/2 ML VIAL IV PRN (11:15)
[2024-04-01] MEDS ORDERED: HYDROmorphone HCL 2 MG/ML VL/or syr IV PRN ×2 (11:15→11:45)
[2024-04-01] MEDS ORDERED: NALOXONE HCL 0.4 MG/ML VIAL ONE (11:23)
[2024-04-01] MEDS ORDERED: ePHEDrine SULFATE 50 MG/ML AMP IV PRN (11:45)
[2024-04-01] MEDS: ceFAZolin 2 GM/D5W50ml 50 ML IV SCH (14:00)
[2024-04-01] MEDS: metroNIDAZOLE 500MG/100ML 100 ML IV SCH (15:11)
[2024-04-01] MEDS: D5W/SOD CHL 0.45%/KCL 20MEQ 1,000 ML IV SCH (15:12)
--- NOTE | 2024-04-01 21:46 | DVHOP ---
DATE OF SURGERY: 04/01/2024 PREOPERATIVE DIAGNOSES: Cholelithiasis, cholecystitis. POSTOPERATIVE DIAGNOSES: Cholelithiasis, cholecystitis. SURGEON: Braden Pacheco MD [place] REPAIR TECHNICIAN: Yony Christine. ANESTHESIA: General endotracheal. ANESTHESIOLOGIST: Dr. Rodriguez. PROCEDURE: Laparoscopy, laparoscopic cholecystectomy. DESCRIPTION OF PROCEDURE: Under general endotracheal anesthesia, with the patient's skin prepped and draped, a supraumbilical incision was made and Veress needle inserted into the peritoneal cavity in order to establish pneumoperitoneum by insufflation with carbon dioxide. With the abdomen fully distended, the needle was removed and replaced with a 5-mm trocar port, through which a 0-degree viewing laparoscope was inserted and under direct vision, 5 and 10 mm ports inserted through the right anterior axillary line at the level of the umbilicus and the subxiphoid skin in the midline respectively. Instrumentation was introduced. Laparoscopy was hampered by the patient's obesity; however, no obvious unexpected pathology was encountered. The gallbladder was affected by chronic cholecystitis was placed on tension. The cystic duct and cystic artery were identified, circumferentially dissected, skeletonized and traced into the hepatocystic triangle so as to minimize the potential for inadvertent injury to the common bile duct. The cystic duct and cystic artery were then divided between metallic clips, again exercising great caution not to injure the common bile duct inadvertently. Subsequent to this division, the gallbladder was resected from its liver bed by electrocautery and traction and retrieved from the peritoneal cavity by placement in a specimen extraction bag, which was withdrawn through the 10 mm port site. Subhepatic space was irrigated, irrigant was aspirated. Hemostasis was meticulously accomplished with electrocautery and assisted by placement of small amount of hemostatic SNoW into the liver bed. Instrumentation was then withdrawn. Pneumoperitoneum was evacuated. Fascial defect closed using 0 Vicryl. Wounds approximated using Monocryl sutures, Dermabond glue and Steri-Strips. The patient remained stable throughout the procedure, left the operating room following an accurate needle and sponge count. Her daughter, Nevaeh, was thoroughly informed at [phone]. Braden Pacheco MD PF/VALORIE TID: [id number] RECEIPT: [id number]
[2024-04-02 01:00] VITALS: BP 129/57; PULSE 72; RESP 20; TEMP 98.8; O2SAT 95
[2024-04-02] MEDS: ACETAMINOPHEN/CODEINE#3 (300/30mg) TAB PO PRN (04:36)
[2024-04-02 05:00] VITALS: BP 119/67; PULSE 85; RESP 18; TEMP 98.8; O2SAT 95
[2024-04-02] MEDS: PANTOPRAZOLE 40 MG/10 ML VIAL INJ IV SCH (05:11)
[2024-04-02 06:12] LABS: Basophils # (auto) 0 10 ^3/uL (0-0.2); Basophils % (auto) 0.3 % (0.0-2.0); Eosinophils # (auto) 0.1 10 ^3/uL (0-0.8); Eosinophils % (auto) 0.7 % (0.0-7.0); Hemoglobin 12.7 g/dL (12.2-16.2); Lymphocytes # (auto) 1.5 10 ^3/uL (0.4-5.4); Lymphocytes % (auto) 20.3 % (10.0-50.0); Mean Corpuscular Hgb Conc. 33.4 g/dL (32.0-36.0); Mean Corpuscular Volume 92.8 fL (80.0-100.0); Monocytes # (auto) 0.6 10 ^3/uL (0-1.3); Monocytes % (auto) 7.3 % (0.0-12.0); Neutrophils # (auto) 5.4 10 ^3/uL (1.6-8.6); Neutrophils % (auto) 71.4 % (37.0-80.0); Nucleated Red Blood Cells % 0.1 %; Platelet Count (auto) 215 10^3/uL (140-450); Red Blood Cells 4.09 10^6/uL (4.0-5.20); Red Cell Distribution Width 13.2 % (11.8-14.3); White Blood Cell 7.5 10^3/uL (4.4-10.8)
[2024-04-02 06:36] LABS: Alanine Aminotransferase 31 U/L (7-40); Albumin 3.9 g/dL (3.2-4.8); Alkaline Phosphatase 98 U/L (46-116); Anion Gap 7 (5-15); BUN/Creatinine Ratio 6.6 (10.0-20.0); Bilirubin, Total 0.8 mg/dL (0.2-1.0); Calcium 9.3 mg/dL (8.7-10.4); Carbon Dioxide 27 mmol/L (20-31); Potassium 4.2 mmol/L (3.5-5.1); Sodium 141 mmol/L (136-145); Total Protein 6.5 g/dL (5.7-8.2)
[2024-04-02 06:45] LABS: Aspartate Aminotransferase 47 U/L (13-40); Blood Urea Nitrogen 6 mg/dL (9-23); Chloride 107 mmol/L (98-107); Glucose 111 mg/dL (74-106)
[2024-04-02 09:00] VITALS: BP 118/68; PULSE 73; RESP 16; TEMP 98.2; O2SAT 92
[2024-04-02 13:31] VITALS: BP 120/71; PULSE 71; RESP 16; TEMP 98.7; O2SAT 92
--- NOTE | 2024-04-02 13:52 | DVHDS2 ---
Discharge Summary Date of Admission Mar 30, 2024 at 20:40 Date of Discharge: Apr 02, 2024 Admitting Diagnosis Cholelithiasis, cholecystitis. Labs/Diagnostic Data: Laboratory Results Test 04/02/24 04:51 03/31/24 18:02 03/31/24 04:20 03/31/24 01:07 White Blood Count 7.5 10^3/uL (4.4-10.8) Red Blood Count 4.09 10^6/uL (4.0-5.20) Hemoglobin 12.7 g/dL (12.2-16.2) Hematocrit 38.0 % (36.0-46.0) Mean Corpuscular Volume 92.8 fL (80.0-100.0) Mean Corpuscular Hemoglobin 31.0 pg (28.0-32.0) Mean Corpuscular Hemoglobin Concent 33.4 g/dL (32.0-36.0) Red Cell Distribution Width 13.2 % (11.8-14.3) Platelet Count 215 10^3/uL (140-450) Mean Platelet Volume 8.5 fL (6.9-10.8) Neutrophils (%) (Auto) 71.4 % (37.0-80.0) Lymphocytes (%) (Auto) 20.3 % (10.0-50.0) Monocytes (%) (Auto) 7.3 % (0.0-12.0) Eosinophils (%) (Auto) 0.7 % (0.0-7.0) Basophils (%) (Auto) 0.3 % (0.0-2.0) Neutrophils # (Auto) 5.4 10 ^3/uL (1.6-8.6) Lymphocytes # (Auto) 1.5 10 ^3/uL (0.4-5.4) Monocytes # (Auto) 0.6 10 ^3/uL (0-1.3) Eosinophils # (Auto) 0.1 10 ^3/uL (0-0.8) Basophils # (Auto) 0 10 ^3/uL (0-0.2) Nucleated Red Blood Cells 0.1 % Sodium Level 141 mmol/L (136-145) Potassium Level 4.2 mmol/L (3.5-5.1) Chloride Level 107 mmol/L (98-107) Carbon Dioxide Level 27 mmol/L (20-31) Anion Gap 7 (5-15) Blood Urea Nitrogen 6 mg/dL (9-23) Creatinine 0.91 mg/dL (0.550-1.02) Glomerular Filtration Rate Calc 66 mL/min (>90) BUN/Creatinine Ratio 6.6 (10.0-20.0) Serum Glucose 111 mg/dL (74-106) Calcium Level 9.3 mg/dL (8.7-10.4) Total Bilirubin 0.8 mg/dL (0.2-1.0) Aspartate Amino Transferase (AST) 47 U/L (13-40) Alanine Aminotransferase (ALT) 31 U/L (7-40) Alkaline Phosphatase 98 U/L (46-116) Total Protein 6.5 g/dL (5.7-8.2) Albumin 3.9 g/dL (3.2-4.8) Prothrombin Time 11.2 sec (9.3-11.8) Prothrombin Time INR 1.06 (0.9-1.15) Activated Partial Thromboplast Time 29.5 SEC (24.5-34.5) Urine Color Yellow (Yellow) Urine Clarity Turbid (Clear) Urine pH 5.5 (5.0-9.0) Urine Specific [place] 1.027 (1.001-1.035) Urine Protein Trace (Negative) Urine Ketones Negative (Negative) Urine Blood Negative /uL (Negative) Urine Nitrite Negative (Negative) Urine Bilirubin Negative (Negative) Urine Urobilinogen Normal mg/dL (Negative) Urine Leukocyte Esterase 3+ /uL (Negative) Urine RBC 7 /hpf (0 - 4) Urine WBC 101 /hpf (0 - 5) Urine Squamous Epithelial Cells Few /hpf (<5) Urine Bacteria Few /hpf (None Seen) Urine Mucus Few (None Seen) Urine Glucose Normal mg/dL (Normal) Urine Opiates Screen Neg (NEGATIVE) Urine Fentanyl Screen Neg (NEGATIVE) Urine Barbiturates Screen Neg (NEGATIVE) Urine Phencyclidine Screen Neg (NEGATIVE) Urine Amphetamines Screen Neg (NEGATIVE) Urine Benzodiazepines Screen Neg (NEGATIVE) Urine Cocaine Screen Neg (NEGATIVE) Urine Cannabinoids Screen Neg (NEGATIVE) Troponin I High Sensitivity 50 ng/L (</=34) Test 03/30/24 22:44 03/30/24 22:40 Hemoglobin A1c 5.7 % A1C (<5.7) Triglycerides Level 220 mg/dL (< 150) Cholesterol Level 258 mg/dL (< 200) LDL Cholesterol 174 mg/dL (< 100) HDL Cholesterol 49 mg/dL (40-59) Lipase 37 U/L (12-53) Influenza Type A Antigen Negative (Negative) Influenza Type B Antigen Negative (Negative) SARS-CoV-2 Antigen (Rapid) Negative (NEGATIVE) Other Laboratory Tests 04/02/24 04:51 Brief Hx & Hospital Course: Patient was a 73-year-old female with no significant past medical history who was transferred from [facility] where she went for chief complaint of chest pain for few hours prior to admission yesterday. Patient reported that about 10:00 a.m. in the morning yesterday she started having sudden onset pressure-like right lower chest pain which radiated to the back ,right upper quadrant and epigastrium, occurred while she was walking in the house, 8/10 on intensity, the pain relieved on sitting up and exacerbated on lying down, no association with deep breaths. Denied recent flu-like symptoms of cough, congestion, coryza, body aches. Denied similar episode before. Patient does not report history of indigestion, GERD, taking Nsaids, drinking excess caffiene or eating spicy foods. Patient was admitted to [facility] where she underwent: CT chest abdomen with contrast which showed dominant 2 cm calcified gallstone no cholecystitis, no acute findings chest abdominal pelvis, 2.1 cm somewhat intermediate right adrenal nodule Ultrasound abdomen showed cholelithiasis with borderline gallbladder wall thickening Patient had elevated troponin 80->170 12 lead EKG showed no ST segment changes, nonspecific T-wave abnormality. Patient was seen in surgical consult, patient underwent cholecystectomy. See operative report below. Operations or Procedures DATE OF SURGERY: 04/01/2024 PREOPERATIVE DIAGNOSES: Cholelithiasis, cholecystitis. POSTOPERATIVE DIAGNOSES: Cholelithiasis, cholecystitis. SURGEON: Braden Pacheco MD WARNING COORDINATION METEOROLOGIST: Yony Christine. ANESTHESIA: General endotracheal. ANESTHESIOLOGIST: Dr. Rodriguez. PROCEDURE: Laparoscopy, laparoscopic cholecystectomy. DESCRIPTION OF PROCEDURE: Under general endotracheal anesthesia, with the patient's skin prepped and draped, a supraumbilical incision was made and Veress needle inserted into the peritoneal cavity in order to establish pneumoperitoneum by insufflation with carbon dioxide. With the abdomen fully distended, the needle was removed and replaced with a 5-mm trocar port, through which a 0-degree viewing laparoscope was inserted and under direct vision, 5 and 10 mm ports inserted through the right anterior axillary line at the level of the umbilicus and the subxiphoid skin in the midline respectively. Instrumentation was introduced. Laparoscopy was hampered by the patient's obesity; however, no obvious unexpected pathology was encountered. The gallbladder was affected by chronic cholecystitis was placed on tension. The cystic duct and cystic artery were identified, circumferentially dissected, skeletonized and traced into the hepatocystic triangle so as to minimize the potential for inadvertent injury to the common bile duct. The cystic duct and cystic artery were then divided between metallic clips, again exercising great caution not to injure the common bile duct inadvertently. Subsequent to this division, the gallbladder was resected from its liver bed by electrocautery and traction and retrieved from the peritoneal cavity by placement in a specimen extraction bag, which was withdrawn through the 10 mm port site. Subhepatic space was irrigated, irrigant was aspirated. Hemostasis was meticulously accomplished with electrocautery and assisted by placement of small amount of hemostatic SNoW into the liver bed. Instrumentation was then withdrawn. Pneumoperitoneum was evacuated. Fascial defect closed using 0 Vicryl. Wounds approximated using Monocryl sutures, Dermabond glue and Steri-Strips. The patient remained stable throughout the procedure, left the operating room following an accurate needle and sponge count. Her daughter, Nevaeh, was thoroughly informed at [phone]. Condition at Discharge: Stable Final Diagnosis/Problems List Cholelithiasis, chronic cholecystitis. Chronic Diastolic CHF Dyslipidemia- Cont Crestor Discharge Disposition: Home Discharge Instruct/Medications Diet: See Comment Diet comment: Low Fat Activity: Light activity Follow Up/Referral: Dr. Pacheco in 1 week Medications: Tylenol PRN Discharge Statement: "Patient was advised to return to the ER or call 911 if any headaches, dizziness, shortness of breath, chest pain, abdominal pain, bleeding, fevers, or worsening of medical condition. Patient was counseled about treatment plan, medications, possible side effects, patientverbalized understanding. All questions were answered to the best of my ability. This discharge took greater then 30 minutes in planning, reviewing documentation, counseling the patient, and discussing with other team members." ASSESSMENT ASSESSMENT Assessment Date of Service: Apr 02, 2024 Billing Provider: TALIB HARMON MD Common Visit Codes: [id number] DISCH DAY >30min TALIB HARMON MD Apr 02, 2024 13:52
[2024-04-02 14:51] VITALS: BP 118/68; PULSE 73; RESP 16; TEMP 98.2; O2SAT 92
--- NOTE | 2024-04-08 13:13 | ECG ---
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
== END 2024-04-02 15:41 | disposition home or self-care (01) | DRG 417 ==
LOC: TELE-EAST 20:40
PROVIDERS: ADMIT Internal Medicine; ATTEND Internal Medicine
PROC: 0FT44ZZ Resection of Gallbladder, Percutaneous Endoscopic Approach (ICD-10-PCS; principal; 2024-04-01 10:30)
DX: K80.10 Calculus of gallbladder with chronic cholecystitis without obstruction (principal); I21.A1 Myocardial infarction type 2; I50.32 Chronic diastolic (congestive) heart failure; E78.5 Hyperlipidemia, unspecified; K82.8 Other specified diseases of gallbladder; E66.9 Obesity, unspecified; Z82.49 Family history of ischemic heart disease and other diseases of the circulatory system; Z68.31 Body mass index [BMI] 31.0-31.9, adult; Z79.899 Other long term (current) drug therapy
CPT/HCPCS: 36415; 71045; 74181; 80053; 80061; 80307; 81001; 83036; 83690; 84484; 85025; 85610; 85730; 86850; 86900; 86901; 87426; 87804; 93005; 93306; G0378; J1885; J2250; J2405; J2470; J3490

== ENCOUNTER → 2024-07-27 | Outpatient (CLI) | payer OTHER ==
[2024-07-27 09:29] LABS: Urine Bacteria None Seen /hpf (None Seen)
[2024-07-27 09:57] LABS: Basophils # (auto) 0 10 ^3/uL (0-0.2); Basophils % (auto) 0.6 % (0.0-2.0); Eosinophils # (auto) 0.1 10 ^3/uL (0-0.8); Eosinophils % (auto) 1.5 % (0.0-7.0); Hematocrit 37.9 % (36.0-46.0); Hemoglobin 12.7 g/dL (12.2-16.2); Lymphocytes # (auto) 1.8 10 ^3/uL (0.4-5.4); Lymphocytes % (auto) 36.9 % (10.0-50.0); Mean Corpuscular Hemoglobin 31.4 pg (28.0-32.0); Mean Corpuscular Hgb Conc. 33.6 g/dL (32.0-36.0); Mean Corpuscular Volume 93.3 fL (80.0-100.0); Monocytes # (auto) 0.3 10 ^3/uL (0-1.3); Neutrophils # (auto) 2.6 10 ^3/uL (1.6-8.6); Platelet Count (auto) 253 10^3/uL (140-450); Red Blood Cells 4.06 10^6/uL (4.0-5.20); Red Cell Distribution Width 14.2 % (11.8-14.3); White Blood Cell 4.8 10^3/uL (4.4-10.8)
[2024-07-27 10:05] LABS: Urine Blood Negative /uL (Negative); Urine Clarity Clear (Clear); Urine Color Light-Yellow (Yellow); Urine Protein, UAD Negative (Negative); Urine Specific Gravity 1.014 (1.001-1.035); Urine Squamous Epithelial Cell None Seen /hpf (<5); Urine Urobilinogen Normal (Negative); Urine pH 6.5 (5.0-9.0)
[2024-07-27 11:18] LABS: Alanine Aminotransferase 16 U/L (7-40); Alkaline Phosphatase 94 U/L (46-116); Anion Gap 7 (5-15); BUN/Creatinine Ratio 19.3 (10.0-20.0); Blood Urea Nitrogen 16 mg/dL (9-23); Calcium 9.6 mg/dL (8.7-10.4); Carbon Dioxide 26 mmol/L (20-31); Glucose 89 mg/dL (74-106); Potassium 4.2 mmol/L (3.5-5.1); Sodium 141 mmol/L (136-145); Total Protein 7.3 g/dL (5.7-8.2); Triglycerides 146 mg/dL (< 150)
[2024-07-27 11:19] LABS: Albumin 4.5 g/dL (3.2-4.8); Aspartate Aminotransferase 19 U/L (13-40); HDL Cholesterol 57 mg/dL (40-59)
[2024-07-27 11:20] LABS: Bilirubin, Total 0.6 mg/dL (0.2-1.0)
[2024-07-27 11:24] LABS: Chloride 108 mmol/L (98-107); Cholesterol 281 mg/dL (< 200); LDL Cholesterol 200 mg/dL (< 100)
== END | disposition home or self-care (01) ==
LOC: LAB 09:09
PROVIDERS: ATTEND Student in an Organized Health Care Education/Training Program
DX: E78.5 Hyperlipidemia, unspecified (principal); E03.9 Hypothyroidism, unspecified; Z12.11 Encounter for screening for malignant neoplasm of colon; R73.9 Hyperglycemia, unspecified; R03.0 Elevated blood-pressure reading, without diagnosis of hypertension
CPT/HCPCS: 36415; 80053; 80061; 81001; 82270; 83036; 84439; 84443; 85025

== ENCOUNTER 2024-10-20 09:11 | Outpatient (CLI) | payer OTHER ==
[2024-10-20 09:48] LABS: Triglycerides 114 mg/dL (< 150)
[2024-10-20 09:50] LABS: Cholesterol 140 mg/dL (< 200); HDL Cholesterol 57 mg/dL (40-59)
== END 2024-10-20 17:00 | disposition home or self-care (01) ==
LOC: LAB 09:11
PROVIDERS: ATTEND Student in an Organized Health Care Education/Training Program
DX: E78.5 Hyperlipidemia, unspecified (principal)
CPT/HCPCS: 36415; 80061